=== PATIENT | male | born 1995 | race Caucasian/White ===

== ENCOUNTER 2017-11-13 17:57 | Emergency (ER) | payer MEDICAID, OTHER | END 2017-11-13 18:33 | disposition home or self-care (01) | LOC: EDH 17:57 | DX: K02.9 Dental caries, unspecified (principal) ==

== ENCOUNTER 2018-03-20 14:43 | Emergency (ER) | payer SELFPAY ==
[2018-03-20] MEDS ORDERED: TETANUS/DIPHTHERIA TOXOID [ADULT] 0.5 ML VIAL IM ONE (14:53)
[2018-03-20] MEDS ORDERED: LIDOCAINE 1%-EPI 1:100,000 20 ML VIAL IJ ONE (14:53)
== END 2018-03-20 15:59 | disposition home or self-care (01) ==
LOC: EDH 14:43
DX: S81.011A Laceration without foreign body, right knee, initial encounter (principal); W45.8XXA Other foreign body or object entering through skin, initial encounter; Y93.89 Activity, other specified; Y92.89 Other specified places as the place of occurrence of the external cause; Y99.8 Other external cause status
CPT/HCPCS: 12032; 73560; 90471; 90714; 99284; J3490